=== PATIENT | male | born 1950 | race Caucasian/White ===

== ENCOUNTER 2017-08-12 15:41 | Emergency (ER) | payer MEDICARE ==
[~2017-08-12] VITALS: Ht 167.6 cm; Wt 90.9 kg
[~2017-08-12 15:41] MED LIST: ASPI-1182 PO; ASPI81TA33 PO; CHOLESTEROL MED; LISI-661 PO; METO25TA6 PO; OMEP10CA2 PO; TOPROL; VALS320T2 PO
[2017-08-12] MEDS ORDERED: LOSA50TA37 PO (15:47)
[2017-08-12] MEDS ORDERED: ATOR40TA71 PO (15:47)
[2017-08-12] MEDS ORDERED: METO-391 PO (15:47)
[2017-08-12] MEDS ORDERED: KETOROLAC TROMETHAMINE 30 MG/ML VIAL IM ONE (16:30)
[2017-08-12] MEDS ORDERED: METHOCARBAMOL 500 MG TABLET PO ONE (16:30)
[2017-08-12 17:10] VITALS: BP 139/72
== END 2017-08-12 17:11 | disposition home or self-care (01) ==
LOC: EMS 15:42
DX: S16.1XXA Strain of muscle, fascia and tendon at neck level, initial encounter (principal); E78.00 Pure hypercholesterolemia, unspecified; I10 Essential (primary) hypertension; Z79.82 Long term (current) use of aspirin; V49.49XA Driver injured in collision with other motor vehicles in traffic accident, initial encounter; Y93.89 Activity, other specified; Y92.488 Other paved roadways as the place of occurrence of the external cause; Y99.8 Other external cause status
CPT/HCPCS: 96372; 99283; J1885